=== PATIENT | female | born 1995 | race Caucasian/White ===

== ENCOUNTER 2018-01-06 11:37 | Emergency (ER) | payer SELFPAY ==
--- NOTE | 2018-01-06 11:48 | ED.GENADUL ---
Disposition Clinical Impression: Lyme disease Disposition: HOME Condition: Fair Instructions: Lyme Disease (ED) Additional Instructions: Encourage hydration. Take antibiotics as prescribed. Even if symptoms improve, please take the entire course. Please follow-up with primary care this week for reevaluation. If you develop chest pain, shortness of breath, fever/chills, body aches or other new/worsening symptoms please seek care urgently once again. Try to avoid the sun, keep on long sleeves and hat. Prescriptions: Doxycycline [Doryx] 100 mg PO BID #42 tabcr Referrals: Mary Frausto NP [NURSE PRACTITIONER] - Medical Decision Making - Medical Decision Making Patient presents today with chief complaint of rash to the right lower quadrant of her abdomen. Impression been present for the past 3 days. On exam, patient has a bull's-eye rash in the right lower side of her abdomen. 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 States her dog is currently being treated for Lyme. We discussed differential diagnoses including cellulitis versus Lyme disease. Is not visible by rash, nontender I am highly suspicious for Lyme. She will be treated with doxycycline. We discussed medication in depth. We discussed new/worsening symptoms when to seek care urgently once again. Advise follow-up with primary care within the next week for reevaluation. Patient is currently menstruating.. All of her questions and concerns were addressed and she is in agreement this plan. History of Present Illness - General Stated complaint: INSECT BITE Time Seen by Provider: 01/06/18 11:48 Source: patient, family, RN notes reviewed Mode of arrival: ambulatory Limitations: no limitations - History of Present Illness Initial comments: Patient is an otherwise healthy 22-year-old female, accompanied by friend, with chief complaint of a rash on the right lower side of her abdomen. She reports that the rash began approximately 3 days ago. She reports that the area is warm but nontender. States that she has been slightly fatigued. Denies any fevers or chills. Denies any body aches. Denies any abdominal pain. No nausea, vomiting or diarrhea. Patient is status post appendectomy. She is currently menstruating. Patient reports that she does live in the [facility]. She is currently treating her dog for Lyme. - Related Data Citalopram [CeleXA] 40 mg PO HS tab-cap 10/08/12 Doxycycline [Doryx] 100 mg PO BID #42 tabcr 01/06/18 Allergies Allergy/AdvReac Type Severity Reaction Status Date / Time No Known Allergies Allergy Unverified 01/06/18 12:39 Review of Systems Constitutional: no symptoms reported, see HPI Respiratory: no symptoms reported Cardiovascular: denies: chest pain, palpitations Gastrointestinal: as per HPI. denies: abdominal pain, nausea, vomiting, diarrhea Musculoskeletal: denies: back pain Skin: as per HPI, rash Past Medical History - Past Medical History Medical history: no medical history - Social History Smoking status: never smoker General Exam - General Limitations: no limitations General appearance: alert, in no apparent distress - Eye Eye exam: Present: normal apperance - Respiratory Respiratory exam: Present: normal lung sounds bilaterally. Absent: respiratory distress - Cardiovascular Cardiovascular Exam: Present: regular rate, normal rhythm, normal heart sounds - GI/Abdominal GI/Abdominal exam: Present: other (Patient has a circular erythematous bull's-eye rash on the right lower quadrant. Maximal diameter is approximately 12 cm. Patient has already marked out the borders of the area of erythema. No pain with palpation. No discharge. Sclerae is slightly warm to the touch.) - Back Exam Back exam: Present: normal inspection. Absent: rash noted - Neurological Exam Neurological exam: Present: alert, normal gait - Psychiatric Psychiatric exam: Present: normal affect, normal mood - Skin Skin exam: Absent: normal color (As above)
--- NOTE | 2018-01-06 11:54 | ED.GENADUL_ITS ---
Disposition Clinical Impression: Lyme disease Disposition: HOME Condition: Fair Instructions: Lyme Disease (ED) Additional Instructions: Encourage hydration. Take antibiotics as prescribed. Even if symptoms improve , please take the entire course. Please follow-up with primary care this week for reevaluation. If you develop chest pain, shortness of breath, fever/chills , body aches or other new/worsening symptoms please seek care urgently once again. Try to avoid the sun, keep on long sleeves and hat. Prescriptions: Doxycycline [Doryx] 100 mg PO BID #42 tabcr Referrals: Mary Frausto NP [NURSE PRACTITIONER] - Medical Decision Making - Medical Decision Making Patient presents today with chief complaint of rash to the right lower quadrant of her abdomen. Impression been present for the past 3 days. On exam, patient has a bull's-eye rash in the right lower side of her abdomen. 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 States her dog is currently being treated for Lyme. We discussed differential diagnoses including cellulitis versus Lyme disease. Is not visible by rash, nontender I am highly suspicious for Lyme. She will be treated with doxycycline. We discussed medication in depth. We discussed new/worsening symptoms when to seek care urgently once again. Advise follow-up with primary care within the next week for reevaluation. Patient is currently menstruating.. All of her questions and concerns were addressed and she is in agreement this plan. History of Present Illness - General Stated complaint: INSECT BITE Time Seen by Provider: 01/06/18 11:48 Source: patient, family, RN notes reviewed Mode of arrival: ambulatory Limitations: no limitations - History of Present Illness Initial comments: Patient is an otherwise healthy 22-year-old female, accompanied by friend, with chief complaint of a rash on the right lower side of her abdomen. She reports that the rash began approximately 3 days ago. She reports that the area is warm but nontender. States that she has been slightly fatigued. Denies any fevers or chills. Denies any body aches. Denies any abdominal pain. No nausea , vomiting or diarrhea. Patient is status post appendectomy. She is currently menstruating. Patient reports that she does live in the [facility]. She is currently treating her dog for Lyme. - Related Data Citalopram [CeleXA] 40 mg PO HS tab-cap 10/08/12 Doxycycline [Doryx] 100 mg PO BID #42 tabcr 01/06/18 Allergies Allergy/AdvReac Type Severity Reaction Status Date / Time No Known Allergies Allergy Unverified 01/06/18 12:39 Review of Systems Constitutional: no symptoms reported, see HPI Respiratory: no symptoms reported Cardiovascular: denies: chest pain, palpitations Gastrointestinal: as per HPI. denies: abdominal pain, nausea, vomiting, diarrhea Musculoskeletal: denies: back pain Skin: as per HPI, rash Past Medical History - Past Medical History Medical history: no medical history - Social History Smoking status: never smoker General Exam - General Limitations: no limitations General appearance: alert, in no apparent distress - Eye Eye exam: Present: normal apperance - Respiratory Respiratory exam: Present: normal lung sounds bilaterally. Absent: respiratory distress - Cardiovascular Cardiovascular Exam: Present: regular rate, normal rhythm, normal heart sounds - GI/Abdominal GI/Abdominal exam: Present: other (Patient has a circular erythematous bull's- eye rash on the right lower quadrant. Maximal diameter is approximately 12 cm. Patient has already marked out the borders of the area of erythema. No pain with palpation. No discharge. Sclerae is slightly warm to the touch.) - Back Exam Back exam: Present: normal inspection. Absent: rash noted - Neurological Exam Neurological exam: Present: alert, normal gait - Psychiatric Psychiatric exam: Present: normal affect, normal mood - Skin Skin exam: Absent: normal color (As above)
[2018-01-06 12:34] VITALS: BP 102/71; PULSE 68; RESP 16; TEMP 36.7; O2SAT 99
== END 2018-01-06 13:08 | disposition home or self-care (01) ==
PROVIDERS: Emergency Provider Physician Assistant; PCP Family Medicine
DX: A69.20 Lyme disease, unspecified (principal)
CPT/HCPCS: 99283

== ENCOUNTER 2019-03-10 15:39 | Outpatient (REF) | payer MEDICAID, SELFPAY ==
--- NOTE | 2019-03-10 15:00 | PAPFT_PTH ---
PATIENT: Ana Maria Harkins LOC: [facility] U#:[id number] AGE/SX: 23/F ROOM: RE03/10/[address]: Anabelle Tolbert : 1995 BED: DIS: 03/10/2019 SPEC #: [id number] RECD: 03/11/19 12:53 STATUS: ALICIA REQ #: [id number] GENET: 03/10/19 15:[address]: Anabelle Tolbert DEPT: FA Cytology RECD BY: Tricia Saenz ENTERED: 03/11/19 12:53 SP TYPE: PAPFT OTHR DR: Ana Maria España V Tissues: 1 - CX/ENDOCX FOR PAP SMEARS Procedures: PAP THIN PREP/[facility] Screening Comments: [id number]
== END 2019-03-10 15:59 ==
LOC: NCHCN 15:39
PROVIDERS: PCP Family Medicine; Visit Provider Nurse Practitioner Family
DX: G43.909 Migraine, unspecified, not intractable, without status migrainosus (principal); Z12.4 Encounter for screening for malignant neoplasm of cervix; Z01.419 Encounter for gynecological examination (general) (routine) without abnormal findings; Z00.00 Encounter for general adult medical examination without abnormal findings
CPT/HCPCS: 82306; 88142

== ENCOUNTER 2020-04-12 03:00 | Outpatient (CLI) | payer MEDICAID, SELFPAY ==
[2020-04-12 13:27] LABS: HCG Quant, Pregnancy 716 mIU/mL (1-3)
== END 2020-04-12 03:20 ==
PROVIDERS: PCP Nurse Practitioner Family; Visit Provider Advanced Practice Midwife
DX: R10.30 Lower abdominal pain, unspecified (principal); Z34.91 Encounter for supervision of normal pregnancy, unspecified, first trimester
CPT/HCPCS: 36415; 86850; 86900; 86901; 84702

== ENCOUNTER 2020-04-14 02:53 | Outpatient (CLI) | payer MEDICAID, SELFPAY ==
[2020-04-14 14:08] LABS: HCG Quant, Pregnancy 2369 mIU/mL (1-3)
== END 2020-04-14 03:13 ==
PROVIDERS: PCP Nurse Practitioner Family; Visit Provider Advanced Practice Midwife
DX: O26.891 Other specified pregnancy related conditions, first trimester (principal); R10.30 Lower abdominal pain, unspecified
CPT/HCPCS: 36415; 84702

== ENCOUNTER 2020-04-21 12:17 | Outpatient (REF) | payer MEDICAID, SELFPAY | END 2020-04-21 12:37 | LOC: LBN 12:17 | PROVIDERS: PCP Nurse Practitioner Family; Visit Provider Advanced Practice Midwife | DX: R10.30 Lower abdominal pain, unspecified (principal) | CPT/HCPCS: 87086 ==

== ENCOUNTER 2020-05-25 14:32 | Outpatient (CLI) | payer MEDICAID, SELFPAY ==
[2020-05-25 15:03] LABS: Abs Immature Grans 0.03 10^3/uL (0.0-0.06); Absolute Basophil Count 0.05 10^3/uL (0.0-0.2); Absolute Eosinophil Count 0.18 10^3/uL (0.0-0.7); Absolute Lymphocyte Count 2.52 10^3/uL (1.2-3.4); Absolute Neutrophil Count 7.15 10^3/uL (1.2-6.7); Basophils % 0.5; Eosinophils % 1.7; HCT 36.6 % (36.0-46.0); HGB 12.3 g/dL (11.2-15.7); Immature Grans % 0.3; Lymphocytes % 23.9; MCH 29.6 pg (27.0-33.0); MCHC 33.6 % (32.0-36.0); MPV 9.7 fL (8.0-11.0); Monocytes % 5.7; Neutrophils % 67.9; Nucleated RBC 0 %; Platelet Count 271 10^3/uL (130-400); RBC 4.16 10^6/uL (3.93-5.22); RDW 11.9 % (11.7-14.6); RDW-SD 38.1 fL; WBC 10.53 10^3/uL (4.4-10.8)
[2020-05-25 16:01] LABS: Kit/Specimen SENT
[2020-05-25 16:42] LABS: TSH (W/Ref FT4) 4.18 uIU/mL (0.36-3.74)
[2020-05-25 17:12] LABS: FREE T4 0.96 ng/dL (0.76-1.46)
[2020-05-26 09:33] LABS: Hepatitis B Surface Ag Negative (Negative)
[2020-05-26 09:34] LABS: Varicella IgG Antibody Positive (See Note)
[2020-05-26 09:38] LABS: Rubella IgG Ab (UVM) Positive (See Note)
[2020-05-26 10:21] LABS: HIV-1/2 Ag & Ab Screen Negative (Negative)
[2020-05-26 10:42] LABS: Hepatitis C Ab w Rflx HCV PCR Negative (Negative)
[2020-05-27 10:10] LABS: Syphilis Total Ab w/Reflex Nonreactive (Nonreactive)
[2020-06-08 17:07] LABS: Specimen WB Whole Blood
== END 2020-05-25 14:52 ==
PROVIDERS: PCP Nurse Practitioner Family; Visit Provider Advanced Practice Midwife
DX: Z34.91 Encounter for supervision of normal pregnancy, unspecified, first trimester (principal); Z11.4 Encounter for screening for human immunodeficiency virus [HIV]; Z11.59 Encounter for screening for other viral diseases; Z01.84 Encounter for antibody response examination
CPT/HCPCS: 36415; 86787; 86803; 86850; 86900; 86901; 87340; 87389; 81220; 84439; 84443; 85025; 86762; 86780

== ENCOUNTER 2020-05-25 22:09 | Outpatient (REF) | payer MEDICAID, SELFPAY ==
[2020-05-25 16:43] LABS: *AMPHETAMINES SCREEN URINE Negative (Negative); *BARBITURATES SCREEN URINE Negative (Negative); *BENZODIAZEPINES SCREEN URINE Negative (Negative); Cannabinoids THC Negative (Negative); Cocaine Screen,Urine Negative (Negative); METHADONE URINE SCREEN Negative (Negative); OPIATES URINE SCREEN Negative (Negative)
[2020-05-25 16:44] LABS: Tricyclic Antidepressants Negative (Negative)
[2020-05-26 14:21] LABS: Chlamydia Result Negative (Negative); GC Result Negative (Negative)
[2020-05-28 15:52] LABS: Buprenorphine Negative; Norbuprenorphine Negative
== END 2020-05-25 22:29 ==
LOC: LBN 22:09
PROVIDERS: PCP Nurse Practitioner Family; Visit Provider Advanced Practice Midwife
DX: Z34.91 Encounter for supervision of normal pregnancy, unspecified, first trimester (principal); Z11.3 Encounter for screening for infections with a predominantly sexual mode of transmission
CPT/HCPCS: 80307; 87491; 87591; 87086

== ENCOUNTER 2020-07-20 01:27 | Outpatient (CLI) | payer MEDICAID, SELFPAY ==
--- NOTE | 2020-07-20 08:00 | DI.US_ITS ---
EXAM: US OB 2-3 TRIMESTER CLINICAL HISTORY: morphology,Z34.02,HYPOTHYROID. TECHNIQUE: Transabdominal obstetrical ultrasound performed. COMPARISON: No exams were available for comparison FINDINGS: Transabdominal obstetrical ultrasound performed. FINDINGS: Number of fetuses: One. position: Variable heart rate: 143 bpm. Placental grade: 1 Placental location: Anterior. No evidence of previa. BIOMETRIC DATA: BPD: 43 millimeters, 18+ 6 weeks HC: 161 millimeters, 18+ 6 weeks AC: 131 millimeters, 18+ 4 weeks FL: 28 millimeters, 18+ 4 weeks Cisterna Magna: 3.0 millimeters Cerebellum: 1.89 cm EFW: 250 grms 59% Composite Age: 18+ 5 weeks EDC by US: 16 December 2020 Amniotic fluid : Amount of fluid is visually within normal limits. ANATOMICAL SURVEY: Four-chambered heart: Unremarkable. LVOT: Unremarkable. RVOT: Unremarkable. Left-sided stomach: Unremarkable. urinary bladder: Unremarkable. Bilateral kidneys: Unremarkable. Three-vessel cord: Unremarkable. Cord insertion: Unremarkable. Umbilical artery velocity: Unremarkable. Posterior fossa:Unremarkable. ventricles: Unremarkable. nose: Unremarkable. lips: Unremarkable. palate: Unremarkable. spine: Unremarkable. Two arms and two legs: Unremarkable. IMPRESSION: 1. Single live intrauterine gestation as above. 2. Normal anatomic survey. DATA REPOSITORY:
== END 2020-07-20 01:28 ==
PROVIDERS: PCP Nurse Practitioner Family; Visit Provider Obstetrics & Gynecology Gynecology
DX: O99.282 Endocrine, nutritional and metabolic diseases complicating pregnancy, second trimester (principal); E03.9 Hypothyroidism, unspecified; Z3A.18 18 weeks gestation of pregnancy
CPT/HCPCS: 36415; 76805; 82105; 84443

== ENCOUNTER 2020-07-20 15:40 | Outpatient (REF) | payer MEDICAID, SELFPAY | END 2020-07-20 15:41 | disposition home or self-care (01) | LOC: LBN 15:40 | PROVIDERS: PCP Nurse Practitioner Family; Visit Provider Advanced Practice Midwife | DX: O26.892 Other specified pregnancy related conditions, second trimester (principal); R35.0 Frequency of micturition; Z3A.18 18 weeks gestation of pregnancy | CPT/HCPCS: 87086 ==

== ENCOUNTER 2020-10-01 00:48 | Outpatient (CLI) | payer MEDICAID, SELFPAY ==
[2020-10-01 13:35] LABS: Glucose,1 Hr (Glucola) 115 mg/dL (80-140)
[2020-10-01 13:41] LABS: HCT 34.3 % (36.0-46.0); HGB 11.4 g/dL (11.2-15.7); MCH 29.6 pg (27.0-33.0); MCHC 33.2 % (32.0-36.0); MCV 89.1 fL (80-95); MPV 10.1 fL (8.0-11.0); Platelet Count 267 10^3/uL (130-400); RBC 3.85 10^6/uL (3.93-5.22); RDW 12.1 % (11.7-14.6); RDW-SD 39.1 fL; WBC 11.78 10^3/uL (4.4-10.8)
[2020-10-01 14:29] LABS: TSH 1.53 uIU/mL (0.36-3.74)
== END 2020-10-01 00:49 | disposition home or self-care (01) ==
LOC: LBO 00:54
PROVIDERS: Advanced Practice Midwife; PCP Nurse Practitioner Family; Visit Provider Advanced Practice Midwife
DX: O99.283 Endocrine, nutritional and metabolic diseases complicating pregnancy, third trimester (principal); E03.9 Hypothyroidism, unspecified; Z3A.28 28 weeks gestation of pregnancy
CPT/HCPCS: 36415; 82950; 85027; 84439; 84443

== ENCOUNTER 2020-11-19 13:33 | Outpatient (CLI) | payer MEDICAID, SELFPAY ==
[2020-11-19 14:04] VITALS: BP 118/74; PULSE 112
[2020-11-19 14:06] VITALS: BP 118/74; PULSE 111; RESP 16; TEMP 37.1
[2020-11-19 14:36] VITALS: BP 118/74; PULSE 112; TEMP 209.7; TEMP 98.7
--- NOTE | 2020-11-19 14:41 | W.OBNST ---
Date of service: 11/19/20 Time of Service: 14:20 NST Evaluation Reason for NST Reasons for Nonstress Test: LABOR Gestational Age Gestational Age in Weeks and Days: 35 Weeks and 6Days Test and Monitor Explained Test/Monitor Explained: Test Explained, Monitor Explained and Patient Verbalized Understanding Vital Signs Blood Pressure: 118/74 Pulse: 112 Temperature: 209.7 F NST Information Date on Monitor: 11/19/20 Time on Monitor: 13:56 Date off Monitor: 11/19/20 Time off Monitor: 14:28 Total Time on Monitor: 32 NST Interventions: None NST Evaluation Patient States Movement: Present FHR Baseline: 145 Variability: Moderate 6-25 bpm Accelerations: 15x15 Decelerations: Variable NST Results: Reactive Note NST Note Note: Ana Maria Harkins presents at 35w6d with concern of 2 events of intense pain that were constant for approximately 40 minutes that occurred a week apart. No LOF or bleeding. No pain today. Baby has been active. Her abdomen is soft and not tender to touch. NST is reactive and reassuring, CAT I. Discharged to home in satisfactory condition to return as needed or for her next visit as scheduled on Sunday.RUSSELL NST Reviewed and Verified by: Sherine Khanna
[2020-11-19 14:44] VITALS: BP 118/74; PULSE 112; TEMP 209.7; TEMP 98.7
== END 2020-11-19 14:41 | disposition home or self-care (01) ==
LOC: BCD 13:36 → OBS 13:58
PROVIDERS: PCP Nurse Practitioner Family; Visit Provider Advanced Practice Midwife
DX: O60.03 Preterm labor without delivery, third trimester (principal); Z3A.35 35 weeks gestation of pregnancy
CPT/HCPCS: 59025; G0378

== ENCOUNTER 2020-11-22 16:38 | Outpatient (REF) | payer MEDICAID, SELFPAY ==
[2020-11-22 16:58] LABS: Bilirubin Negative (Negative); Blood Negative (Negative); Clarity Clear (Clear); Glucose Negative (Negative); Ketones Negative (Negative); Leukocyte Esterase Negative (Negative); Nitrite Negative (Negative); Specific Gravity 1.015 (1.005-1.025); Urobilinogen 0.2 EU/dL (Up TO 0.2)
[2020-11-22 17:09] LABS: *AMPHETAMINES SCREEN URINE Negative (Negative); *BARBITURATES SCREEN URINE Negative (Negative); *BENZODIAZEPINES SCREEN URINE Negative (Negative); Cannabinoids THC Negative (Negative); Cocaine Screen,Urine Negative (Negative); METHADONE URINE SCREEN Negative (Negative); OPIATES URINE SCREEN Negative (Negative)
[2020-11-22 17:10] LABS: Tricyclic Antidepressants Negative (Negative)
[2020-11-26 10:56] LABS: Buprenorphine Negative ng/mL (Cutoff: 5.0); Norbuprenorphine Negative ng/mL (Cutoff: 2.5)
== END 2020-11-22 16:39 | disposition home or self-care (01) ==
LOC: LBN 16:38
PROVIDERS: PCP Nurse Practitioner Family; Visit Provider Advanced Practice Midwife
DX: Z34.93 Encounter for supervision of normal pregnancy, unspecified, third trimester (principal); Z36.85 Encounter for antenatal screening for Streptococcus B; Z3A.36 36 weeks gestation of pregnancy
CPT/HCPCS: 80307; 81003; 87081

== ENCOUNTER 2020-11-30 04:03 | Outpatient (CLI) | payer MEDICAID, SELFPAY ==
[2020-11-30 18:10] LABS: FREE T4 0.89 ng/dL (0.76-1.46); TSH 2.48 uIU/mL (0.36-3.74)
== END 2020-11-30 04:04 | disposition home or self-care (01) ==
LOC: LBO 04:03
PROVIDERS: Advanced Practice Midwife; PCP Nurse Practitioner Family; Visit Provider Advanced Practice Midwife
DX: O99.283 Endocrine, nutritional and metabolic diseases complicating pregnancy, third trimester (principal); E03.9 Hypothyroidism, unspecified; Z3A.37 37 weeks gestation of pregnancy
CPT/HCPCS: 36415; 84439; 84443

== ENCOUNTER 2020-12-08 14:53 | Outpatient (CLI) | payer MEDICAID, SELFPAY ==
--- NOTE | 2020-12-08 14:15 | DI.US_ITS ---
Exam(s) US OB ZORA WEIGHT EXAM: US OB ZORA WEIGHT CLINICAL HISTORY: size less than dates on exam O26.849. TECHNIQUE: Transabdominal obstetrical ultrasound was performed. COMPARISON: Prior ultrasound 07/20/2020 FINDINGS: There is a single viable intrauterine gestation with cardiac activity identified-136 bpm The fetus is presently in cephalic position . Amniotic fluid: There is a normal amount of amniotic fluid with an ZORA of 12.7cm. Placental location: The placenta is anterior grade 2,with no evidence of placenta previa.This is from the tip of the placenta to the internal cervical os is [address] this at approximately 38 weeks and 2 days gestational age, implying PERLITA of December 20, 2020. BPD measures 39 weeks and 3 days HC measures 39 weeks and 4 days AC measures 36 weeks and 3 days FL measures 37 weeks and 3 days Estimated weight is 3193 gm-7 pounds 1 ounce Fetus is at the 36th percentile on the Hadlock scale. IMPRESSION:: Viable 3rd trimester gestation, as described above. Placenta is anterior. No evidence of placenta previa. There is a normal amount of amniotic fluid. DATA REPOSITORY:
== END 2020-12-08 15:13 ==
PROVIDERS: PCP Nurse Practitioner Family; Visit Provider Advanced Practice Midwife
DX: O36.5930 Maternal care for other known or suspected poor fetal growth, third trimester, not applicable or unspecified (principal); Z3A.39 39 weeks gestation of pregnancy
CPT/HCPCS: 76816

== ENCOUNTER 2020-12-13 11:52 | Outpatient (CLI) | payer MEDICAID, SELFPAY ==
[2020-12-13 12:16] VITALS: BP 114/68; PULSE 91; TEMP 36.5
[2020-12-13 12:18] VITALS: BP 114/68; PULSE 91
--- NOTE | 2020-12-13 14:57 | W.OBNST ---
Date of service: 12/13/20 Time of Service: 14:57 NST Evaluation Reason for NST Reasons for Nonstress Test: OTHER, SEE COMMENT Reason for NST Other: Rule out labor Gestational Age Gestational Age in Weeks and Days: 39 Weeks and 2Days Test and Monitor Explained Test/Monitor Explained: Test Explained, Monitor Explained and Patient Verbalized Understanding Vital Signs Blood Pressure: 114/68 Pulse: 91 Temperature: 97.7 F Urine Results Urine Protein: Negative Urine Ketones: Negative Urine Glucose: Negative Urine Blood: Negative NST Information Date on Monitor: 12/13/20 Time on Monitor: 12:16 Date off Monitor: 12/13/20 Time off Monitor: 13:35 Total Time on Monitor: 79 NST Interventions: PO Hydration Contraction Frequency: 2-6 NST Evaluation Patient States Movement: Present FHR Baseline: 135 Variability: Moderate 6-25 bpm Accelerations: 15x15 Decelerations: None NST Results: Reactive Note NST Note Note: 39 wks, prodromal sx, cvx check 2/90% posterior, vtx -3 intact membranes Rx'ed Vistaril 75 mg for HS tonight, advised on coping strategies for prolonged prodomal phase NST Reviewed and Verified by: Maureen Walden
[2020-12-13 14:59] VITALS: BP 114/68; PULSE 91; TEMP 36.5
== END 2020-12-13 13:40 | disposition home or self-care (01) ==
LOC: BCD 11:55 → OBS 12:02
PROVIDERS: PCP Nurse Practitioner Family; Visit Provider Advanced Practice Midwife
DX: O47.1 False labor at or after 37 completed weeks of gestation (principal); Z3A.39 39 weeks gestation of pregnancy
CPT/HCPCS: 59025

== ENCOUNTER 2020-12-13 16:54 | Inpatient (IN) | payer MEDICAID, SELFPAY ==
[2020-12-13] VITALS (9 sets, daily range): BP systolic 111–126; BP diastolic 56–77; PULSE 68–93; RESP 16; TEMP 36.6–36.7
--- NOTE | 2020-12-13 16:57 | HPE_ITS ---
Date of service: 12/13/20 Time of Service: 16:57 Assessment and Plan Assessment and plan (1) Spontaneous onset of labor: Status: Acute Assessment and plan: A: 25 yo G1 @ 39+2 wks Active labor category 1 tracing low risk for SD and PPH asking for epidural now P: Admit to BC, T&S, CBC, COVID swab Start IVF and begin bolus in preparation for epidural anesthesia Anticipate , BANK BOSS paged OB-HPI Labor/Delivery History of Present Illness Chief Complaint: Uterine Contractions. PERLITA Calculator Estimated Delivery Date Method Current WG Current Estimate 12/18/20 LMP (Certain) 39w 2d Other Estimates 12/17/20 Ultrasound #1 39w 3d Comments: Pt was in for labor check earlier today, was 2 cm and went home at 1340, returns now with increased painful contractions. History of Present Expected Delivery Route/Plan - CNM FOB/ - Nicholas Valdes. BG- name is a 'surprise GBS negative Planning for regional anesthesia Specific Issues/Plan 1. H/O ruptured appendix - pelvic pain, QHCGs rising appropriately - dating US scheduled at . 1a. at 7 wks pt denies sx, [employer] sono in DI cancelled 2. History of migraine - discontinued medications 3. ACO Medicaid: [place] not needed for CF, waived for [place]. SMA not covered. 3a. [place] LPX3 female 4. TSH elevated >4 with nml T4, will begin levothyroxine 25 mcg, 4a. recheck TSH/T4 in 6 weeks 07/20/20 2.54, repeat thyroid labs 3rd trimester: TSH - 1.53 at 29 wks 4b. Lightheaded spells - repeat thyroid labs at 36 weeks, drawn 11/30 5. CF carrier screen positive, pt notified 06/09/20, FOB/ tested 06/10, he is carrier screen negative 6. Ana Maria and her partner undecided re: covid vaccination - discussed 09/17- will probably receive vaccine after delivery 7. History of anxiety - stopped medications to become . - reviewed signs of post depression/anxiety Assessment: History Reviewed & Current Informed Consent Informed Consent: Regional Anesthesia and Risk,Benefits,Alternatives Discussed Review of Systems All systems reviewed & are unremarkable except as noted in HPI and below Constitutional Constitutional: Reports system reviewed and no additional complaints, except as documented Cardiovascular Cardiovascular: Reports system reviewed and no additional complaints, except as documented Respiratory Respiratory: Reports system reviewed and no additional complaints, except as documented Gastrointestinal Gastrointestinal: Reports system reviewed and no additional complaints, except as documented Genitourinary Genitourinary: Reports system reviewed and no additional complaints, except as documented Musculoskeletal Musculoskeletal: Reports system reviewed and no additional complaints, except as documented Integumentary/Breasts Skin/Breast: Reports system reviewed and no additional complaints, except as documented Psychiatric Psychiatric: Reports system reviewed and no additional complaints, except as documented [facility] Medical History (Updated 12/13/20 @ 17:05 by Maureen Walden) Anxiety Encounter for supervision of normal first , second trimester History of migraine amitryptilline, citalopram, and propanalol. 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 Pets and animals: Yes (have 2 cows, several goats and chickens) Pets and animals: farm animals What is your relationship status?: living with partner Panel score (0-1 are the most socially isolated patients): 1 Do you feel safe in your relationship?: Yes History History 1 Para 0 Hx # Term Pregnancies 0 Multiple births 0 Hx # Pregnancies 0 Ectopic pregnancies 0 AB induced 0 Hx Number of Living Children 0 AB spontaneous 0 Meds Allergies and Home Medications Allergies Allergy/AdvReac Type Severity Reaction Status Date / Time No Known Allergies Allergy Verified 12/08/20 13:40 Home Medications Medication Instructions Recorded Confirmed Type prenat.vits,alison,kck-cxmf-kxood 1 tab PO DAILY 04/21/20 12/08/20 History levothyroxine 25 mcg capsule 25 mcg PO DAILY #90 cap 08/03/20 12/08/20 Rx hydroxyzine pamoate 25 mg capsule 75 mg PO QHS #3 cap 12/13/20 Rx Exam Physical Exam Vital Signs Reviewed: Yes Constitutional Constitutional: moderate distress Detailed Labor and Delivery Exam Dilation: 5 Effacement (%): 100 station: -2 Cervix position: mid Consistency: soft Amniotic Membrane Status: Intact (bulging forebag palpable) Contraction Frequency(min): q 3 Contraction Duration(sec): 60-80 Contraction Intensity: Moderate Fetus A Heart Rate Baseline: 130 Monitor Accelerations: Present Monitor Decelerations: None Variability: Moderate (6-25 BPM) Presentation: Cephalic Categories: Category I Est. Weight: 7 lb 0.877 oz Est. Weight: 3200 gms Date of Membrane Rupture: 12/13/20 Time of Membrane Rupture: 17:03 HEENT Exam HEENT Exam: Normal Neck Exam Neck Exam: Normal Chest/Brest/Axilla Exam Chest Exam: Normal Breast Exam Breast Exam: Not Done Respiratory Exam Respiratory Exam: Normal Cardiovascular Exam Cardiovascular Exam: Normal Abdominal Exam Abdominal Exam: Normal (gravid, nontender) Rectal Exam Rectal Exam: Not Done Exam Exam: Normal Extremities Exam Extremities Exam: Normal Back/Spine/Pelvis Exam Back Exam: Normal Pelvis Adequate: Yes Skin Exam Skin Exam: Normal Neurological Exam Neurological Exam: Normal Psychiatric Exam Psychiatric Exam: Normal Results Results Group Beta Strep: Negative Blood Type: A+ Rubella Status: Immune Varicella Immunity: Immune Risk Assessment Risk for Shoulder Dystocia Historical/Initial OB: NEGATIVE FOR: Pelvic Abnormality, Pre- BMI>30, Previous Shoulder Dystocia or Previous Macrosomia 40 Weeks: NEGATIVE FOR: EFW> 4500 gms, Maternal Weight Gain >40lb or Post Dates Increased Risk?: No Counselin05/25/20 yes al Delivery Plan @ 36wks: spont labor, Risk for Pre-Eclampsia Daily Dose ASA Indicated: No Date Initiated/Initials: 05/25/20 al Yes, if one or more: NEGATIVE FOR: Hx Pre-E/Gest HTN, Chronic HTN, Multiple Gestation, Pre-gestational DM, Renal Disease, Systemic Lupus or APA Syndrome Yes, if 2 or more: NEGATIVE FOR: Nulliparity, Age>= 35 yrs, >10yr btwn pregnancies, BMI>30, ethinicty, Mother/Sister w/ Pre-E or Previous IUGR Risk for Post- Hemorrhage Initial: NEGATIVE FOR: Multiple Gestation, Previous PPH, Known Clotting Deficiency, Grand Multiparity or Anticoagulation At Risk?: No Counseled re: Active Management: Yes Risks Reviewed Risks Reviewed Upon Admission: Yes
[2020-12-13 17:23] LABS: HCT 38.8 % (36.0-46.0); HGB 13.4 g/dL (11.2-15.7); MCH 30.2 pg (27.0-33.0); MCHC 34.5 % (32.0-36.0); MCV 87.6 fL (80-95); MPV 10.1 fL (8.0-11.0); Platelet Count 249 10^3/uL (130-400); RBC 4.43 10^6/uL (3.93-5.22); RDW 11.9 % (11.7-14.6); RDW-SD 38.2 fL
--- NOTE | 2020-12-13 18:07 | W.OBDELIVERY ---
Date of service: 12/13/20 Time of Service: 18:07 OB Labor/ Delivery Information Baby A Delivery Delivery Method: Spontaneaous Presentation: Vertex Vertex Position: Left Occipital Anterior Breech Position: N/A Cord Description-Baby A: 3 Vessels Amniotic Fluid: Clear Estimated Blood Loss: 200 Delivery Outcome: Liveborn Transferred: Remains with Mother Note: Pt arrived in center 5/100%, vtx -2 BBOW requesting epidural anesthesia. Admission procedures completed as quickly as possible: EFM applied, labs drawn, MECHANICAL FACILITIES TECHNICIAN paged, pt using nitrous and RN starting IV access when SROM of clear fluid occured and pt shortly thereafter spontaneously began bearing down. Tracing very difficult to read d/t loss and unclear signal, 2nd stage huddle completed, bradycardia per EFM noted 80's bpm during 4 minutes of and pt encouraged in her efforts to facilitate immediate delivery, shoulders came easily and nuchal hand was noted. Non-vigorous though gasping female infant placed briefly on mother's abd for initial stim and drying while cord quickly clamped and cut, infant to warmer for further drying, stim, suction and oxygen by PPV then blowby with pulse ox monitoring, Peds paged STAT to center, see details in infants medical record, 02 was 95% at 5 minutes of age. Don placenta intact with 3 VC, fundus firm below umbilicus, cord blood collected, EBL 200 ml. Apgars 3/6/9, Dr. Reyes arrived at 8 minutes when baby was no longer receiving PPV and was crying. Baby examined by Dr. Jacobson and then placed on mother's chest for S2S. 1st degree perieal laceration repaired under local anesthesia with 3.0 Vicryl. 40 minutes time from pt arrival on unit to delivery. Strong family bonding observed, wt 3140 gms. Providers Nurse Ore Miner Blasting: Maureen Walden Nurse: Ann Horan Nurse: Rosalinda Salomon Other: So Linda RN Labor/Delivery Information Number of Babies in Womb: 1 Steroids Given: None Reason Steroids Not Administered: N/A Group Beta Strep: Negative Antibiotics Administered: No Rubella Status: Immune Blood Type: A+ Varicella Immunity: Immune Maternal Complications: Precipitous Labor(<3hrs) Shoulder Dystocia: No Stages of Labor Onset of Labor Date: 12/13/20 Onset of Labor Time: 05:30 Complete Dilatation Date: 12/13/20 Complete Dilatation Time: 17:16 Labor - Stage 1 Duration: 0 minutes ROM Baby A: 12/13/20 ROM Baby A: 17:03 ROM Total Time- Baby A: [id number] Infant Delivery Date-Baby A: 12/13/20 Delivery Time-Baby A: 17:23 Labor Stage 2 Duration: 7 minutes Placenta Delivery Date-Baby A: 12/13/20 Placenta Delivery Time-Baby A: 17:28 Labor-Stage 3 Duration: 5 minutes Total Length of Labor-Baby A: 11 hours and 53 minutes Placenta Status: Delivered Baby A Infant Gender: Female Gestational Status: Term (39-41.6 wks) Gestational Age in Weeks/Days: 39 Weeks and 2 Days Score-1 Minute Interval(Baby A) Heart Rate-1 minute: Below 100 BPM Respiratory Effort- 1 minute: No Spontaneous Effort Muscle Tone-1 minute: Minimal Flexion/Extension Reflex Response-1 minute: Minimal Response Color-1 minute: Pallor or Cyanosis Total Score-1 minute: 3 Score-5 Minute Interval(Baby A) Heart Rate- 5 minute: 100 BPM or Greater Respiratory Effort-5 minute: Slow Respiration/Weak Cry Muscle Tone-5 minute: Minimal Flexion/Extension Reflex Response-5 minute: Minimal Response Color-5 minute: Bluish Hands or Feet Total Score- 5 minute: 6 Procedure Procedures: Cord Blood Collection Interventions Repair of Laceration Type: Perineal , Laceration Extension: First Degree . Sponge Count Correct: No Sponges Placed in Vagina , Sharp Count Correct: Yes . Laceration Repair Note: local infiltration of lidocaine 1% no epi provided adequate anesthesia for repair of 1st degree lac with 3.0 Vicryl.
[2020-12-13 20:17] LABS: Source Nasal/Nares
[2020-12-13 21:11] LABS: COVID-19 PCR Negative (Negative)
[2020-12-14] MEDS: Levothyroxine 25 MCG TAB PO (06:07)
[2020-12-14 06:46] LABS: HCT 37.6 % (36.0-46.0); HGB 12.8 g/dL (11.2-15.7); MCH 30.3 pg (27.0-33.0); MCV 88.9 fL (80-95); MPV 10.3 fL (8.0-11.0); Platelet Count 231 10^3/uL (130-400); RBC 4.23 10^6/uL (3.93-5.22); RDW-SD 38.5 fL; WBC 16.19 10^3/uL (4.4-10.8)
[2020-12-14 07:55] VITALS: BP 112/71; PULSE 82; RESP 16; TEMP 36.7; O2SAT 98
--- NOTE | 2020-12-14 14:24 | W.PM.OBPNV1 ---
Date of service: 12/14/20 Time of Service: 14:24 Assessment and Plan Assessment and plan (1) Term delivered: Status: Acute Assessment and plan: A: nml PPD#1 off to a good start processing experience P: lengthy discussion about infant resuscitation many questions addressed, answered as best as possible Will cont to offer discussions, entertain questions, as long as needed Pt and FOB express satisfaction with care plan for discharge tomorrow when baby is released undecided about BCM, perhaps Depo continue routine and current PP care Subjective Subjective Patient comments: Pain well controlled, Tolerating diet and Flatus present [place] baby status: Doing well, Nursing well, Rooming in and Strong Bonding Observed [place] feeding status: Exclusively breast feeding Exam Physical Exam Vital signs: Temp Pulse Resp BP Pulse Ox 98.1 F 82 16 112/71 98 12/14/20 07:55 12/14/20 07:55 12/14/20 07:55 12/14/20 07:55 12/14/20 07:55 Vital Signs Reviewed: Yes Constitutional Constitutional: no acute distress HEENT Exam HEENT Exam: Normal Neck Exam Neck Exam: Normal Breast Exam Bilateral: Breast Exam: Normal and Soft Nipple Exam: Normal and Uninjured Respiratory Exam Respiratory Exam: Normal Cardiovascular Exam Cardiovascular Exam: Normal Abdominal Exam Abdomen: Other (soft, nontender) Fundal Exam Fundus: Below Umbilicus Rectal Exam Rectal Exam: Normal Exam Perineum: Normal and Repair Intact Extremities Exam Extremity Exam: Normal Back/Spine/Pelvis Exam Back Exam: Normal Skin Exam Skin Exam: Normal Neurological Exam Neurological Exam: Normal Psychiatric Exam Psychiatric Exam: Normal Results Hemoglobin/Hematocrit: Hgb 12.8 g/dL (11.2-15.7) 12/14/20 06:17 Hct 37.6 % (36.0-46.0) 12/14/20 06:17 Abnormal Lab Findings: Abnormal Labs 12/13/20 12/14/20 17:10 06:17 WBC 15.80 H 16.19 H
[2020-12-14] MEDS: Docusate Sodium 100 MG CAP PO (14:39)
[2020-12-14 20:00] VITALS: BP 108/68; PULSE 75; RESP 16; TEMP 36.6; O2SAT 98
--- NOTE | 2020-12-15 06:43 | W.PM.OBPNV1 ---
Date of service: 12/15/20 Time of Service: 06:43 Assessment and Plan Assessment and plan (1) Term delivered: Status: Acute Assessment and plan: A: nml PPD#2 P: Discharge home today, Written instructions reviewed and given to pt Remains undecided about BCM, will discuss at 2 wk appt F/up in 2 & 6 wks Subjective Subjective Patient comments: No complaints, Pain well controlled, Tolerating diet and Flatus present [place] baby status: Doing well, Nursing well, Rooming in and Strong Bonding Observed feeding status: Exclusively breast feeding Exam Physical Exam Vital signs: Temp Pulse Resp BP Pulse Ox 97.9 F 75 16 108/68 98 12/14/20 20:00 12/14/20 20:00 12/14/20 20:00 12/14/20 20:00 12/14/20 20:00 Vital Signs Reviewed: Yes Constitutional Constitutional: no acute distress HEENT Exam HEENT Exam: Normal Neck Exam Neck Exam: Normal Breast Exam Bilateral: Breast Exam: Normal and Soft Respiratory Exam Respiratory Exam: Normal Cardiovascular Exam Cardiovascular Exam: Normal Abdominal Exam Abdomen: Other (soft, nontender) Fundal Exam Fundus: Below Umbilicus Rectal Exam Rectal Exam: Normal Exam Perineum: Normal and Repair Intact Extremities Exam Extremity Exam: Normal Back/Spine/Pelvis Exam Back Exam: Normal Skin Exam Skin Exam: Normal Neurological Exam Neurological Exam: Normal Psychiatric Exam Psychiatric Exam: Normal
--- NOTE | 2020-12-15 06:45 | DSE_ITS ---
Date of service: 12/15/20 Time of Service: 06:45 DS: Diagnosis Discharge Diagnosis (1) Term delivered: Status: Acute Discharge Plan Disposition Patient Disposition: HOME Condition: Good Discharge Details Reason For Visit: Term Labor Admit Date/Time: 12/13/20 16:54 Admit Provider: Maureen Walden Attending Provider: Maureen Walden Primary Care Provider: Anabelle Tolbert Hospital Course Hospital Course: Spontaneous labor, , nml PP course Home Meds and New Rx's Prescriptions: Discontinued hydroxyzine pamoate [Vistaril] 25 mg capsule 75 mg PO QHS Qty: 3 RF: 0 No Action prenat.vits,alison,[id number] Tablet 1 tab PO DAILY RF: 0 levothyroxine 25 mcg capsule 25 mcg PO DAILY Qty: 90 RF: 1 Discharge Instructions Additional Instructions: Please keep your 2 & 6 wk appt's with your rn patient care, call for any concern or questions at any time. Stand Alone Forms: BC Instructions, NB [place] Instructions, BC Post Vaginal Deliver Activity:: Activity as Tolerated Equipment/Supplies:: No Equipment Needed Diet:: Normal Diet Discharge Orders Discharge Orders: Discharge Order (Routine); Ordered 12/15/20 Ordered By: Maureen Walden OB:DS Summary Summary Vaginal Delivery Method: Spontaneaous Episiotomy Description: None Laceration Description: Perineal Laceration Extension: First Degree Contraception Discussed Contraception Discussed: Yes Contraceptive Plan: Undecided, [place] Gender-Baby A: Female weight: 6 lb 14.76 oz Status at Discharge Functional status at discharge: independent ambulation Overall status at discharge: patient is progressing back to baseline Mental Status: mental status grossly normal Speech and Movement: speech and movement normal and speech clear Mood: congruent mood Affect: normal affect Exam Physical Exam Vital signs: Temp Pulse Resp BP Pulse Ox 97.9 F 75 16 108/68 98 12/14/20 20:00 12/14/20 20:00 12/14/20 20:00 12/14/20 20:00 12/14/20 20:00 Vital Signs Reviewed: Yes Constitutional Constitutional: no acute distress HEENT Exam HEENT Exam: Normal Neck Exam Neck Exam: Normal Breast Exam Bilateral: Breast Exam: Normal and Soft Respiratory Exam Respiratory Exam: Normal Cardiovascular Exam Cardiovascular Exam: Normal Abdominal Exam Abdomen: Other (soft, nontender) Fundal Exam Fundus: Below Umbilicus Rectal Exam Rectal Exam: Normal Exam Perineum: Normal and Repair Intact Extremities Exam Extremity Exam: Normal Back/Spine/Pelvis Exam Back Exam: Normal Skin Exam Skin Exam: Normal Neurological Exam Neurological Exam: Normal Psychiatric Exam Psychiatric Exam: Normal [facility] Medical History (Updated 12/14/20 @ 13:02 by Maureen Walden) Anxiety Dysuria Encounter for supervision of normal first , second trimester History of migraine amitryptilline, citalopram, and propanalol. weaned off these 2019 Hypothyroid Lyme disease with abdominal cramping of lower quadrant, antepartum (~05/2020) Uterine size date discrepancy, antepartum Surgical History History of appendectomy ruptured appendix Family History (Updated 04/21/20 @ 11:30 by Sherine Madden CNM) Father Atrial fibrillation Social History (Updated 06/22/20 @ 09:34 by Jessica Blake MD) Smoking/Tobacco Use Status: Never Smoking risk assessment performed?: Yes Drug use: Never Household members: spouse and other Details: Jude is training to be a [employer]. 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 Pets and animals: Yes (have 2 cows, several goats and chickens) Pets and animals: farm animals What is your relationship status?: living with partner Panel score (0-1 are the most socially isolated patients): 1 Do you feel safe in your relationship?: Yes History History 1 Para 0 Hx # Term Pregnancies 0 Multiple births 0 Hx # Pregnancies 0 Ectopic pregnancies 0 AB induced 0 Hx Number of Living Children 0 AB spontaneous 0 DS: Data Vitals/I&O Vitals and I&O: Vital Signs Temperature 97.9 F 12/14/20 20:00 Pulse 75 12/14/20 20:00 Pulse Rhythm Regular 12/14/20 21:10 Respiratory Rate 16 12/14/20 20:00 Blood Pressure 108/68 12/14/20 20:00 Blood Pressure Mean 81 12/14/20 20:00 Pulse Oximetry 98 12/14/20 20:00 Data Completed and Pending Labs on day of discharge: Labs from last 24 hours 12/14/20 06:17 WBC 16.19 H RBC 4.23 Hgb 12.8 Hct 37.6 MCV 88.9 MCH 30.3 MCHC 34.0 RDW 12.0 Plt Count 231 MPV 10.3
[2020-12-15 07:30] VITALS: BP 111/2; PULSE 75; RESP 18; TEMP 36.2; O2SAT 99
== END 2020-12-15 11:05 | disposition home or self-care (01) | DRG 807 ==
PROVIDERS: Admitting Provider Advanced Practice Midwife; PCP Nurse Practitioner Family; Visit Provider Advanced Practice Midwife
DX: O75.89 Other specified complications of labor and delivery (principal); Z37.0 Single live birth; O76 Abnormality in fetal heart rate and rhythm complicating labor and delivery; Z3A.39 39 weeks gestation of pregnancy; O99.344 Other mental disorders complicating childbirth; O70.0 First degree perineal laceration during delivery; Z14.1 Cystic fibrosis carrier; Z20.822 Contact with and (suspected) exposure to COVID-19
CPT/HCPCS: 36415; 85027; 86850; 86900; 86901; 87635; J3490

== ENCOUNTER 2021-01-26 02:48 | Outpatient (CLI) | payer MEDICAID, SELFPAY ==
[2021-01-26 10:59] LABS: TSH 0.13 uIU/mL (0.36-3.74)
[2021-01-26 11:17] LABS: FREE T4 1.93 ng/dL (0.76-1.46)
== END 2021-01-26 02:49 | disposition home or self-care (01) ==
LOC: LBO 02:48
PROVIDERS: Advanced Practice Midwife; PCP Nurse Practitioner Family; Visit Provider Advanced Practice Midwife
DX: E03.9 Hypothyroidism, unspecified (principal)
CPT/HCPCS: 36415; 84439; 84443

== ENCOUNTER 2022-03-21 13:49 | Outpatient (REF) | payer MEDICAID, SELFPAY ==
--- NOTE | 2022-03-21 13:15 | PAPFT_PTH ---
PATIENT: Ana Maria Harkins LOC: [facility] U#:[id number] AGE/SX: 26/F ROOM: RE03/21/[address]: Ellen Auguste NP : 1995 BED: DIS: 03/21/2022 SPEC #: [id number] RECD: 03/21/22 14:25 STATUS: ALICIA REMary #: [id number] GENET: 03/21/22 13:[address]: Ellen Auguste NP DEPT: [facility] Cytology RECD BY: Tricia Saenz ENTERED: 03/21/22 14:26 SP TYPE: PAPFT OTHR DR: Anabelle Tolbert Tissues: 1 - CX/ENDOCX FOR PAP SMEARS Procedures: PAP THIN PREP/UVM Screening Comments: [id number]
== END 2022-03-21 13:50 | disposition home or self-care (01) ==
LOC: LBN 13:49
PROVIDERS: PCP Nurse Practitioner Family; Visit Provider Nurse Practitioner Women's Health
DX: Z12.4 Encounter for screening for malignant neoplasm of cervix (principal)
CPT/HCPCS: 88142

== ENCOUNTER 2022-03-22 03:26 | Outpatient (CLI) | payer MEDICAID, SELFPAY ==
[2022-03-22 15:04] LABS: TSH (W/Ref FT4) 7.54 uIU/mL (0.36-3.74)
[2022-03-22 15:40] LABS: FREE T4 0.75 ng/dL (0.76-1.46)
== END 2022-03-22 03:27 | disposition home or self-care (01) ==
LOC: LBO 03:26
PROVIDERS: PCP Nurse Practitioner Family; Visit Provider Nurse Practitioner Women's Health
DX: E03.9 Hypothyroidism, unspecified (principal); R63.5 Abnormal weight gain; L65.9 Nonscarring hair loss, unspecified
CPT/HCPCS: 36415; 84439; 84443

== ENCOUNTER 2022-06-01 09:00 | Outpatient (REF) | payer MEDICAID, SELFPAY ==
[2022-06-01 16:08] LABS: TSH 5.99 uIU/mL (0.36-3.74)
== END 2022-06-01 09:01 | disposition home or self-care (01) ==
LOC: NCHCN 09:00
PROVIDERS: PCP Nurse Practitioner Family; Visit Provider Nurse Practitioner Family
DX: E03.9 Hypothyroidism, unspecified (principal)
CPT/HCPCS: 84439; 84443

== ENCOUNTER 2022-07-19 10:16 | Outpatient (REF) | payer MEDICAID, SELFPAY ==
[2022-07-19 15:20] LABS: FREE T4 0.96 ng/dL (0.76-1.46); TSH 3.97 uIU/mL (0.36-3.74)
== END 2022-07-19 10:17 | disposition home or self-care (01) ==
LOC: NCHCN 10:16
PROVIDERS: PCP Nurse Practitioner Family; Visit Provider Nurse Practitioner Family
DX: E03.9 Hypothyroidism, unspecified (principal)
CPT/HCPCS: 84439; 84443

== ENCOUNTER 2022-09-25 03:38 | Outpatient (CLI) | payer MEDICAID, SELFPAY ==
--- NOTE | 2022-09-25 06:30 | DI.US_ITS ---
Exam(s) US PELVIS TRANSVAGINAL EXAM: US PELVIS TRANSVAGINAL CLINICAL HISTORY: ABNL UTERINE BLEEDING,N93.9. TECHNIQUE: Transabdominal and transvaginal pelvic ultrasound was performed using standard protocol. COMPARISON: US US OB ZORA WEIGHT from 12/08/2020 FINDINGS: UTERUS: Position: Anteverted. Size: 6 long by 4 AP by 4.3 transverse cm Endometrium: 0.5 cm. Normal for patient's menstrual status. Myometrium: Unremarkable. Cervix: Unremarkable. OVARIES: Right: 2.4 x 2.2 x 1.7 cm Cyst or mass: No suspicious cystic or solid masses. Left: 2.4 x 1.5 x 2.7 cm Cyst or mass: No suspicious cystic or solid masses. CUL-DE-SAC: Free fluid: None. Other: None. IMPRESSION: 1. Normal-appearing uterus with endometrial stripe within normal limits. 2. Unremarkable bilateral ovaries. DATA REPOSITORY:
== END 2022-09-25 03:58 ==
LOC: DI 03:39
PROVIDERS: PCP Nurse Practitioner Family; Visit Provider Nurse Practitioner Women's Health
DX: N93.9 Abnormal uterine and vaginal bleeding, unspecified (principal)
CPT/HCPCS: 76830; 76856

== ENCOUNTER 2023-02-09 03:03 | Outpatient (CLI) | payer MEDICAID, SELFPAY ==
[2023-02-09 11:42] LABS: FREE T4 0.88 ng/dL (0.76-1.46); TSH 3.27 uIU/mL (0.36-3.74)
== END 2023-02-09 03:04 | disposition home or self-care (01) ==
LOC: LBO 03:04
PROVIDERS: PCP Nurse Practitioner Family; Visit Provider Nurse Practitioner Women's Health
DX: E03.9 Hypothyroidism, unspecified (principal); L65.9 Nonscarring hair loss, unspecified; N92.5 Other specified irregular menstruation
CPT/HCPCS: 36415; 84439; 84443

== ENCOUNTER 2024-02-01 12:25 | Outpatient (CLI) | payer MEDICAID, SELFPAY ==
[2024-02-01 11:15] LABS: HCG Quant, Pregnancy 19 mIU/mL (1-3)
== END 2024-02-01 12:26 | disposition home or self-care (01) ==
LOC: LBO 12:25
PROVIDERS: PCP Nurse Practitioner Family; Visit Provider Obstetrics & Gynecology
DX: N91.0 Primary amenorrhea (principal); Z32.00 Encounter for pregnancy test, result unknown
CPT/HCPCS: 36415; 84702

== ENCOUNTER 2024-02-07 03:46 | Outpatient (CLI) | payer MEDICAID, SELFPAY ==
[2024-02-07 13:09] LABS: HCG Quant, Pregnancy 462 mIU/mL (1-3); TSH (W/Ref FT4) 12.94 uIU/mL (0.36-3.74)
[2024-02-07 13:36] LABS: FREE T4 0.87 ng/dL (0.76-1.46)
== END 2024-02-07 03:47 | disposition home or self-care (01) ==
PROVIDERS: PCP Nurse Practitioner Family; Visit Provider Obstetrics & Gynecology
DX: Z34.90 Encounter for supervision of normal pregnancy, unspecified, unspecified trimester (principal); E03.9 Hypothyroidism, unspecified
CPT/HCPCS: 36415; 84439; 84443; 84702

== ENCOUNTER 2024-02-19 02:43 | Outpatient (CLI) | payer MEDICAID, SELFPAY ==
[2024-02-19 12:46] LABS: HCG Quant, Pregnancy 22862 mIU/mL (1-3)
== END 2024-02-19 02:44 | disposition home or self-care (01) ==
LOC: LBO 02:43
PROVIDERS: Obstetrics & Gynecology; PCP Nurse Practitioner Family; Visit Provider Nurse Practitioner Family
DX: Z34.91 Encounter for supervision of normal pregnancy, unspecified, first trimester (principal)
CPT/HCPCS: 36415; 86850; 86900; 86901; 84702

== ENCOUNTER 2024-03-28 01:56 | Outpatient (CLI) | payer MEDICAID, SELFPAY ==
[2024-03-28 14:38] LABS: Panorama Kit Sent via Fed Ex
[2024-03-28 15:01] LABS: Abs Immature Grans 0.02 10^3/uL (0.0-0.06); Absolute Basophil Count 0.05 10^3/uL (0.0-0.2); Absolute Eosinophil Count 0.35 10^3/uL (0.0-0.7); Absolute Lymphocyte Count 2.32 10^3/uL (1.2-3.4); Absolute Neutrophil Count 7.24 10^3/uL (1.2-6.7); Basophils % 0.5 %; Eosinophils % 3.3 %; HGB 13.4 g/dL (11.2-15.7); Immature Grans % 0.2 %; Lymphocytes % 21.9 %; MCH 29.5 pg (27.0-33.0); MCHC 34.4 % (32.0-36.0); MCV 86 fL (80-95); Monocytes % 5.7 %; Neutrophils % 68.4 %; Platelet Count 270 10^3/uL (130-400); RBC 4.54 10^6/uL (3.93-5.22); RDW 12.1 % (11.7-14.6); RDW-SD 38.3 fL; WBC 10.58 10^3/uL (4.4-10.8)
[2024-03-28 16:10] LABS: FREE T4 0.98 ng/dL (0.76-1.46)
[2024-03-28 23:05] LABS: Hepatitis B Surface Ag Negative (Negative)
[2024-03-28 23:37] LABS: HIV-1/2 Ag & Ab Screen Negative (Negative)
[2024-03-28 23:38] LABS: Hepatitis C Ab w Rflx HCV PCR Negative (Negative)
[2024-03-31 10:15] LABS: Rubella IgG Ab (UVM) Positive (See Note); Varicella IgG Antibody Positive (See Note)
[2024-04-01 14:47] LABS: Syphilis IgG w/Reflex Nonreactive (Nonreactive)
== END 2024-03-28 01:57 | disposition home or self-care (01) ==
LOC: LBO 01:56
PROVIDERS: PCP Nurse Practitioner Family; Visit Provider Advanced Practice Midwife
DX: Z34.91 Encounter for supervision of normal pregnancy, unspecified, first trimester (principal)
CPT/HCPCS: 36415; 86787; 86803; 86850; 86900; 86901; 87340; 87389; 84439; 84443; 85025; 86762; 86780

== ENCOUNTER 2024-03-28 15:55 | Outpatient (REF) | payer MEDICAID, SELFPAY ==
[2024-03-31 12:04] LABS: Chlamydia Result Negative (Negative); GC Result Negative (Negative)
== END 2024-03-28 15:56 | disposition home or self-care (01) ==
LOC: LBN 15:55
PROVIDERS: PCP Nurse Practitioner Family; Visit Provider Advanced Practice Midwife
DX: Z34.91 Encounter for supervision of normal pregnancy, unspecified, first trimester
CPT/HCPCS: 87491; 87591; 87086

== ENCOUNTER 2024-04-21 12:52 | Outpatient (CLI) | payer MEDICAID, SELFPAY ==
[2024-04-21 13:16] LABS: TSH (W/Ref FT4) 3.92 uIU/mL (0.36-3.74)
[2024-04-21 19:17] LABS: FREE T4 0.97 ng/dL (0.76-1.46)
[2024-04-23 12:49] LABS: AFP 26.1 ng/mL; Calculated age at EDD 29 years; Cigarette smoking status non-Smoker; GA used in risk estimate Dates estimate; IVF Pregnancy No; Initial or repeat testing Initial testing; Insulin dependent diabetes No; Maternal Weight 135 lbs; Number of Fetuses 1; Physician Phone Number 802-748-7300; Prev Pregnancy w/NTD No; RECOMMENDED FOLLOW UP None.; Results Summary Normal risk
== END 2024-04-21 12:53 | disposition home or self-care (01) ==
LOC: LBO 12:53
PROVIDERS: Advanced Practice Midwife; PCP Nurse Practitioner Family; Visit Provider Advanced Practice Midwife
DX: E03.9 Hypothyroidism, unspecified (principal); Z34.91 Encounter for supervision of normal pregnancy, unspecified, first trimester
CPT/HCPCS: 36415; 82105; 84439; 84443

== ENCOUNTER 2024-05-26 01:49 | Outpatient (CLI) | payer MEDICAID, SELFPAY ==
--- NOTE | 2024-05-26 07:00 | DI.US_ITS ---
Exam(s) US OB 2-3 TRIMESTER EXAM: US OB 2-3 TRIMESTER CLINICAL HISTORY: SURVEY,Z34.90,Z34.91. TECHNIQUE: Transabdominal obstetrical ultrasound was performed. COMPARISON: US POCUS EXAM from 02/28/2024 FINDINGS: There is a single viable intrauterine gestation with cardiac activity identified-143 bpm. Amniotic fluid: There is a normal amount of amniotic fluid. Placental location: The placenta is posterior grade 1,with no evidence of placenta previa.There is a distance of 4.5 cm between the tip of the placenta and the internal cervical os. The distance betwee n the placental margin and the cord insertion upon the placenta 6.7 cm. ANATOMY: A 3 vessel umbilical cord is seen. A four-chamber cardiac view was obtained. Right and left ventricular outflow tracts were imaged. There are no obvious abnormalities of the spinal column evident. There is no obvious abnormal ity of the anterior abdominal wall. stomach and urinary bladder are identified and there is no evidence of hydronephrosis. No abnormalities of the upper lip region are identified. No evidence of choroid plexus cysts i n the brain. Dating parameters place this at approximately 20 weeks and 1 day gestational age. BPD measures 19 weeks and 4 days HC measures 20 weeks and 3 days AC measures 20 weeks and 6 days FL measures 19 weeks and 5 days Estimated weight is 343 gm-0 pounds, 12 ounces Fetus is at the 53rd percentile on the Hadlock scale. IMPRESSION:: Single viable intrauterine gestation which is approximately 20 weeks and 1 day gestatio nal age, implying an PERLITA of October 12, 2024. There are no obvious anomalies evident on today's study. The placenta is posterior with no evidence of placenta previa. There is a normal amount of amniotic fluid. DATA REPOSITORY:
== END 2024-05-26 02:09 ==
LOC: DI 01:49
PROVIDERS: PCP Nurse Practitioner Family; Visit Provider Advanced Practice Midwife
DX: Z34.92 Encounter for supervision of normal pregnancy, unspecified, second trimester (principal); Z3A.20 20 weeks gestation of pregnancy
CPT/HCPCS: 76805

== ENCOUNTER 2024-05-26 13:56 | Outpatient (REF) | payer MEDICAID, SELFPAY | END 2024-05-26 13:57 | disposition home or self-care (01) | LOC: LBN 13:56 | PROVIDERS: PCP Nurse Practitioner Family; Visit Provider Advanced Practice Midwife | DX: Z34.92 Encounter for supervision of normal pregnancy, unspecified, second trimester (principal); O26.892 Other specified pregnancy related conditions, second trimester; R10.9 Unspecified abdominal pain | CPT/HCPCS: 87480; 87510; 87660 ==

== ENCOUNTER 2024-05-26 15:03 | Outpatient (CLI) | payer MEDICAID, SELFPAY ==
[2024-05-26 14:17] LABS: TSH (W/Ref FT4) 2.39 uIU/mL (0.36-3.74)
== END 2024-05-26 15:04 | disposition home or self-care (01) ==
LOC: LBO 15:06
PROVIDERS: PCP Nurse Practitioner Family; Visit Provider Advanced Practice Midwife
DX: Z34.92 Encounter for supervision of normal pregnancy, unspecified, second trimester (principal)
CPT/HCPCS: 36415; 84443

== ENCOUNTER 2024-07-18 00:41 | Outpatient (CLI) | payer MEDICAID, SELFPAY ==
[2024-07-18 10:37] LABS: HCT 36.1 % (36.0-46.0); HGB 11.8 g/dL (11.2-15.7); MCH 29.6 pg (27.0-33.0); MCHC 32.7 % (32.0-36.0); MCV 91 fL (80-95); MPV 9.1 fL (8.0-11.0); Platelet Count 277 10^3/uL (130-400); RBC 3.98 10^6/uL (3.93-5.22); RDW 12.3 % (11.7-14.6); RDW-SD 40.6 fL; WBC 11.16 10^3/uL (4.4-10.8)
[2024-07-18 10:44] LABS: Glucose,1 Hr (Glucola) 93 mg/dL (80-140)
== END 2024-07-18 00:42 | disposition home or self-care (01) ==
PROVIDERS: Advanced Practice Midwife; PCP Nurse Practitioner Family; Visit Provider Advanced Practice Midwife
DX: Z34.92 Encounter for supervision of normal pregnancy, unspecified, second trimester (principal); E03.9 Hypothyroidism, unspecified
CPT/HCPCS: 36415; 82950; 85027; 84443

== ENCOUNTER 2024-09-12 13:28 | Outpatient (REF) | payer MEDICAID, SELFPAY | END 2024-09-12 13:29 | disposition home or self-care (01) | LOC: LBN 13:28 | PROVIDERS: PCP Nurse Practitioner Family; Visit Provider Advanced Practice Midwife | DX: Z34.93 Encounter for supervision of normal pregnancy, unspecified, third trimester (principal) | CPT/HCPCS: 87081 ==

== ENCOUNTER 2024-10-09 11:32 | Outpatient (CLI) | payer MEDICAID, SELFPAY ==
[2024-10-09 11:32] VITALS: BP 120/59; PULSE 72; RESP 18; TEMP 36.6
[2024-10-09 12:28] VITALS: BP 120/59; PULSE 72
--- NOTE | 2024-10-09 17:16 | W.OBNST ---
Date of service: 10/09/24 Time of Service: 17:17 NST Evaluation Reason for NST Reasons for Nonstress Test: OTHER, SEE COMMENT Reason for NST Other: rule out labor Gestational Age Gestational Age in Weeks and Days: 39 Weeks and 4Days Test and Monitor Explained Test/Monitor Explained: Test Explained and Monitor Explained Vital Signs Blood Pressure: 120/59 Pulse: 72 Temperature: 97.9 F NST Information Date on Monitor: 10/09/24 Time on Monitor: 11:16 Date off Monitor: 10/09/24 Time off Monitor: 12:01 Total Time on Monitor: 45 NST Interventions: None NST Evaluation Patient States Movement: Present FHR Baseline: 130 Variability: Moderate 6-25 bpm Accelerations: 15x15 Decelerations: None NST Results: Reactive Note Ultrasound Done: N/A. NST Note Note: Ana Maria called and reported regular contractions at home. SVE- Cervix 1.5 cms/ post / -2/ 70%. Contractions were mild to mod in strength. She ambulated for comfort and was re-examined after 2.5 hours. The cervix was 2 cms/post/70% with bulging membranes noted. Ana Maria returned home to await active labor. Due history of precipitous labor and , she was given instructions to return promptly if active labor occurs. NST Reviewed and Verified by: Sherine Madden
[2024-10-09 17:20] VITALS: BP 120/59; PULSE 72; TEMP 36.6
== END 2024-10-09 14:41 ==
LOC: BCD 11:42 → OBS 11:45
PROVIDERS: PCP Nurse Practitioner Family; Visit Provider Advanced Practice Midwife
DX: O47.1 False labor at or after 37 completed weeks of gestation (principal); Z3A.39 39 weeks gestation of pregnancy
CPT/HCPCS: 59025; G0378

== ENCOUNTER 2024-10-14 08:45 | Inpatient (IN) | payer MEDICAID, SELFPAY ==
[2024-10-14] VITALS (14 sets, daily range): BP systolic 109–123; BP diastolic 67–79; PULSE 60–99; RESP 18; TEMP 36.6–37.2; O2SAT 97–100
[2024-10-14] MEDS: Oxytocin 10 UNITS/ML VIAL IM (09:07)
[2024-10-14 09:58] LABS: HCT 40.3 % (36.0-46.0); HGB 13.1 g/dL (11.2-15.7); MCH 28.7 pg (27.0-33.0); MCHC 32.5 % (32.0-36.0); MCV 88 fL (80-95); Platelet Count 236 10^3/uL (130-400); RBC 4.56 10^6/uL (3.93-5.22); RDW 12.7 % (11.7-14.6); RDW-SD 40.9 fL; WBC 11.44 10^3/uL (4.4-10.8)
--- NOTE | 2024-10-14 10:35 | HPE_ITS ---
Date of service: 10/14/24 Time of Service: 10:35 Assessment and Plan Assessment and plan (1) Spontaneous onset of labor: Status: Acute Assessment and plan: Ana Maria is very comfortable and delivery is imminent. Comfort measures and anticipate OB-HPI Labor/Delivery History of Present Illness Reason for Visit: Labor Chief Complaint: Uterine Contractions. PERLITA Calculator Estimated Delivery Date Method WG Current Estimate 10/12/24 LMP (Certain) Other Estimates 10/16/24 Ultrasound #1 Infant Delivery Date-Baby A 10/14/24 40w 2d Comments: Ana Maria called and reported very strong contractions at home. History of Present Expected Delivery Route/Plan - CNM FOB/ - Jude Contreras (2nd child together) BB, plans circ Unmedicated as long as things are moving along GBS negative Specific Issues/Plan 1. Known CF carrier, FOB is known negative, cfDNA low risk male, AFP - nml 2. Hx migraine with or without aura, declines Rx or neuro referral 3. Hx PPD after last not reported or treated. Will monitor & discuss need for SSRI, no need prior to delivery. 4. Hypothyroidism, levothyroxine 75 mcg, initial TSH=5.30, FT4=0.98, redrawn at 15 wks- 3.92, MD consult: increase to 100 mcg qd. 4a. Repeated @ 20 wks=2.39. Recheck in 3rd trimester- 1.80 5. 5P screen neg, PHQ9 score=6 6. Tooth problem - treated with amoxicillin 250 TID and had root canal 7. COVID+ @ 22 wks, declines Paxlovid, mild sx 8. Heartburn - relieved by TUMS and mylanta Assessment: History Reviewed & Current PFSH All Active Problems (Updated 10/14/24 @ 10:38 by Sherine Madden CNM) Spontaneous onset of labor (Acute) (Acute) Migraine (Chronic) Hypothyroid (Chronic) Medical History (Updated 10/14/24 @ 10:38 by Sherine Madden CNM) COVID-19 affecting in second trimester Anxiety stopped meds 2019 History of depression Delayed menses Cystic fibrosis carrier, antepartum FOB carrier screen negative Lyme disease History of migraine amitryptilline, citalopram, and propanalol. 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 Pets and animals: Yes (have 2 cows, several goats and chickens) Pets and animals: farm animals What is your relationship status?: living with partner Panel score (0-1 are the most socially isolated patients): 1 Do you feel safe at home: Yes Do you feel safe in your relationship?: Yes Female Reproductive History Menstrual control method: progesterone injection History History 2 Para 1 Hx # Term Pregnancies 1 Multiple births 0 Hx # Pregnancies 0 Ectopic pregnancies 0 AB induced 0 Hx Number of Living Children 1 AB spontaneous 0 Past Pregnancies Del. Date GA/Weeks # Preg Succ Route Wgt Sex Labor Lgth Anesth esia Location [facility] 12/13/20 39 No Yes vaginal 6 lb 14 oz Female 11hr 53 min Maureen Walden CNM Delivery Date: 12/13/20 Last Updated by: Lisa Walden rapid labor and precip delivery, [facility] Allergies and Home Medications Allergies Allergy/AdvReac Type Severity Reaction Status Date / Time No Known Allergies Allergy Verified 10/13/24 09:47 Home Medications ?Medication ?Instructions ?Recorded ?Confirmed ?Type vitamin#30 30 mg iron-10 cap PO 02/01/24 10/06/24 History mg iron-folic acid 1 mg-omg3 capsule levothyroxine 100 mcg tablet 100 mcg PO DAILY #30 tabs 06/20/24 10/06/24 Rx (Synthroid) aluminum-mag hydroxide-simethicone 10 ml PO QID PRN 09/19/24 10/06/24 History 200 mg-200 mg-20 mg/5 mL oral susp Exam Physical Exam Vital signs: Temp Pulse Resp BP Pulse Ox 97.9 F 78 18 111/75 100 10/14/24 09:37 10/14/24 10:24 10/14/24 09:37 10/14/24 10:24 10/14/24 09:41 Vital Signs Reviewed: Yes Constitutional Constitutional: mild distress Detailed Labor and Delivery Exam Dilation: 8 Effacement (%): 100 station: +1 Cervix position: mid Consistency: soft Gonsalez Score: Cervical Points Exam 0 1 2 3 Dilation Closed 1-2cm 3-4 cm 5-6cm Effacement 0-30% 40-50% 60-70% 80% Consistency Firm Medium Soft Station -3 -2 -1,0 +1,+2 Position Posterior Mid Anterior Amniotic Membrane Status: Intact Contraction Frequency(min): every 3 min Contraction Duration(sec): 60 Contraction Intensity: Strong Fetus A Heart Rate Baseline: 130 Monitor Accelerations: 15 X 15 Monitor Decelerations: None Variability: Moderate (6-25 BPM) Presentation: Cephalic Categories: Category I Date of Membrane Rupture: 10/14/24 Time of Membrane Rupture: 09:00 HEENT Exam HEENT Exam: Normal Respiratory Exam Respiratory Exam: Normal Cardiovascular Exam Cardiovascular Exam: Normal Abdominal Exam Abdominal Exam: Normal Exam Exam: Normal Extremities Exam Extremities Exam: Normal Skin Exam Skin Exam: Normal Psychiatric Exam Psychiatric Exam: Normal Results Results Group Beta Strep: Negative Blood Type: A+ Rubella Status: Immune Varicella Immunity: Immune Abnormal Lab Findings: Abnormal Labs 10/14/24 09:50 WBC 11.44 H Risk Assessment Risk for Shoulder Dystocia Historical/Initial OB: NEGATIVE FOR: Pelvic Abnormality, Pre- BMI>30, Previous Shoulder Dystocia or Previous Macrosomia 36 Weeks: NEGATIVE FOR: Current Gestational DM, EFW>4500gms or Maternal Weight Gain>40lbs 40 Weeks: NEGATIVE FOR: EFW> 4500 gms, Maternal Weight Gain >40lb or Post Dates Delivery Plan @ 36wks: spont labor, Risk for Pre-Eclampsia Yes, if one or more: NEGATIVE FOR: Hx Pre-E/Gest HTN, Chronic HTN, Multiple Gestation, Pre-gestational DM, Renal Disease, Systemic Lupus or APA Syndrome Yes, if 2 or more: NEGATIVE FOR: Nulliparity, Age>= 35 yrs, >10yr btwn pregnancies, BMI>30, ethinicty, Mother/Sister w/ Pre-E or Previous IUGR Risk for Post- Hemorrhage Initial: NEGATIVE FOR: Multiple Gestation, Previous PPH, Known Clotting Deficiency, Grand Multiparity or Anticoagulation 36 Weeks: NEGATIVE FOR: Anemia, hgb<10, Low platelets(thrombocytopenia), Gestational HTN or Pre-E, Polyhydraminios or EFW>4500gms 40 Weeks: NEGATIVE FOR: Anemia, hgb<10, Low platelets (thrombocytopenia), Gestation HTN or Pre-E, Polyhydraminios or EFW>4500gms Counseled re: Active Management: Yes Risks Reviewed Risks Reviewed Upon Admission: Yes
--- NOTE | 2024-10-14 10:39 | W.OBDELIVERY ---
Date of service: 10/14/24 Time of Service: 10:39 OB Labor/ Delivery Information Baby A Delivery Delivery Method: Spontaneaous Presentation: Cephalic Cephalic Position: Vertex Vertex Position: Left Occipital Anterior Cord Description-Baby A: 3 Vessels Cord Description Comment: loose body cord Amniotic Fluid: Clear Estimated Blood Loss: 200 Delivery Outcome: Liveborn Complications: none Infant Transferred: Remains with Mother Note: FHTs 130s during first stage of labor. Shortly after arrival she had an urge to push. With bearing down, SROM occurred for clear fluid. She delivered 1 minute later. Spontaneous delivery of male infant delivered in AMANDA position. Baby was placed on mother's abdomen and dried and stimulated. Spontaneous cry. Cord was clamped and cut by the baby's father. The placenta delivered spontaneously and appears to by intact with a three vessel cord. Pitocin 10 units IM was administered before delivery of the placenta. The perineum was inspected and she had a 1st degree laceration. The baby did breastfeed. After delivery, Mother and baby and father of the baby were stable and bonding well in the delivery room and there were no complications. His name is Geronimo. Providers Nurse Revenue Integrity Analyst: Sherine Madden Nurse: So Leahy Nurse: Perry Arizmendi Other: Kayley Blue Labor/Delivery Information Number of Babies in Womb: 1 Steroids Given: None Reason Steroids Not Administered: N/A Group Beta Strep: Negative Antibiotics Administered: No Rubella Status: Immune Blood Type: A+ Varicella Immunity: Immune Born En Route: Yes Shoulder Dystocia: No Stages of Labor Onset of Labor Date: 10/14/24 Onset of Labor Time: 07:15 Complete Dilatation Date: 10/14/24 Complete Dilatation Time: 09:00 Labor - Stage 1 Duration: 1 hours and 45 minutes ROM Baby A: 10/14/24 ROM Baby A: 09:00 ROM Total Time- Baby A: [id number] Delivery Date-Baby A: 10/14/24 Delivery Time-Baby A: 09:01 Labor Stage 2 Duration: 1 minutes Placenta Delivery Date-Baby A: 10/14/24 Placenta Delivery Time-Baby A: 09:07 Labor-Stage 3 Duration: 6 minutes Total Length of Labor-Baby A: 1 hours and 46 minutes Placenta Status: Delivered Baby A Infant Gender: Male Gestational Status: Term (39-41.6 wks) Gestational Age in Weeks/Days: 40 Weeks and 2 Days weight: 8 lb 6.923 oz Length-Baby A: 21 in Head Circumference-Baby A: 13.75 in Score-1 Minute Interval(Baby A) Heart Rate-1 minute: 100 BPM or Greater Respiratory Effort- 1 minute: Spontaneous/Strong Cry Muscle Tone-1 minute: Active Movement Reflex Response-1 minute: Prompt Response Color-1 minute: Bluish Hands or Feet Total Score-1 minute: 9 Score-5 Minute Interval(Baby A) Heart Rate- 5 minute: 100 BPM or Greater Respiratory Effort-5 minute: Spontaneous/Strong Cry Muscle Tone-5 minute: Active Movement Reflex Response-5 minute: Prompt Response Color-5 minute: Bluish Hands or Feet Total Score- 5 minute: 9 Interventions Repair of Laceration Type: Perineal, Laceration Extension: First Degree. Sponge Count Correct: No Sponges Placed in Vagina, Sharp Count Correct: Yes. Laceration Repair Note: first degree laceration with superficial skin extension repaired under local anesthetic with 3-0 vicryl suture
[2024-10-14] MEDS: miSOPROStol 200 MCG TAB 400 MCG SL (11:09)
[2024-10-14] MEDS: Hamamelis Leaf/Glycerin 100 EACH BOX PR (11:23)
[2024-10-14] MEDS: Dibucaine 1% 28 GM TUBE TP (11:23)
[2024-10-14] MEDS: Normal Saline Flush 10 ML SYR IVP (19:48)
[2024-10-14] MEDS: Levothyroxine 100 MCG TAB PO (19:48)
[2024-10-15 00:04] VITALS: BP 110/82; PULSE 79; RESP 18; TEMP 36.7
[2024-10-15 03:26] VITALS: BP 118/78; PULSE 75; RESP 18; TEMP 36.7
[2024-10-15 07:48] VITALS: BP 118/81; PULSE 92; RESP 18; TEMP 36.7; O2SAT 97
--- NOTE | 2024-10-15 09:41 | W.PM.OBPNV1 ---
Date of service: 10/15/24 Time of Service: 09:41 Assessment and Plan Assessment and plan (1) Term of male : Status: Acute Assessment and plan: Caring for baby independently. Pain is managed well with oral analgesics. Voiding without difficulty. well. A - stable mother and baby , Post day 1 P - Discharge to home today. Routine post instructions. [facility] Subjective Subjective Patient comments: No complaints Patient's Mood: good baby status: Doing well feeding status: Exclusively breast feeding Exam Physical Exam Vital signs: Temp Pulse Resp BP Pulse Ox 98.1 F 92 H 18 118/81 97 10/15/24 07:48 10/15/24 07:48 10/15/24 07:48 10/15/24 07:48 10/15/24 07:48 Vital Signs Reviewed: Yes Constitutional Constitutional: no acute distress HEENT Exam HEENT Exam: Normal Respiratory Exam Respiratory Exam: Normal Cardiovascular Exam Cardiovascular Exam: Normal Fundal Exam Fundus: Below Umbilicus and Firm Extremities Exam Extremity Exam: Normal Skin Exam Skin Exam: Normal Psychiatric Exam Psychiatric Exam: Normal Results Hemoglobin/Hematocrit: Hgb 13.1 g/dL (11.2-15.7) 10/14/24 09:50 Hct 40.3 % (36.0-46.0) 10/14/24 09:50 Abnormal Lab Findings: Abnormal Labs 10/14/24 09:50 WBC 11.44 H
== END 2024-10-15 12:55 | disposition home or self-care (01) | DRG 807 ==
LOC: OBS 09:29 → BCD 10-15 09:18
PROVIDERS: Admitting Provider Advanced Practice Midwife; PCP Nurse Practitioner Family; Visit Provider Advanced Practice Midwife
DX: O99.284 Endocrine, nutritional and metabolic diseases complicating childbirth (principal); Z37.0 Single live birth; E03.9 Hypothyroidism, unspecified; G43.909 Migraine, unspecified, not intractable, without status migrainosus; Z3A.40 40 weeks gestation of pregnancy; R12 Heartburn; Z14.8 Genetic carrier of other disease; O70.0 First degree perineal laceration during delivery
CPT/HCPCS: 36415; 85027; 86850; 86900; 86901; J2590

== ENCOUNTER 2024-11-25 12:56 | Outpatient (CLI) | payer MEDICAID, SELFPAY ==
[2024-11-25 12:41] LABS: TSH (W/Ref FT4) 1.41 uIU/mL (0.36-3.74)
== END 2024-11-25 12:57 | disposition home or self-care (01) ==
LOC: LBO 12:56
PROVIDERS: PCP Nurse Practitioner Family; Visit Provider Advanced Practice Midwife
DX: E03.9 Hypothyroidism, unspecified (principal)
CPT/HCPCS: 36415; 84443